=== PATIENT | female | born 1955 | race Caucasian/White ===

== ENCOUNTER 2016-07-03 17:45 | Emergency (ER) | payer MEDICARE, MEDICAID ==
[~2016-07-03] VITALS: Ht 170.2 cm; Wt 50.0 kg
[~2016-07-03 17:45] MED LIST: ALBU6.7H INH; APRI0.372 PO; CALALOT3 TOP; CARB LEFT EAR; CEFP200T PO; CREON24 PO; DUONI NEB; INSU100V2 SQ; LASI20TA PO; LEXA10TA PO; LORA-392 PO; MAXI5O EACH EYE; MELA3CAP2 PO; MONT10TA2 PO; MS C15TA7 PO; MS C60TA4 PO; MSIR15 PO; NITR0.4S SL; PERI8.6T PO; PRED20 PO; PROC1TAB8 PO; SIMV40 PO; Z.0.OXYGEN INH; [UNRECOGNIZED DRUG - CODE] TOP
[2016-07-03 18:27] VITALS: BP 147/73; PULSE 71; RESP 16; TEMP 98.1; O2SAT 99
--- NOTE | 2016-07-03 18:35 | PD ---
HPI Chief Complaint: fall Time Seen by Provider: 18:27 Travel History International Travel<30 days: No Contact w/Intl Traveler<30days: No Traveled to known affect area: No History of Present Illness HPI This is a 60-year-old female who reports a history of MS, COPD, on hospice care. She presents via EMS for evaluation after mechanical fall. She reports chronic hip pain which she has been told is secondary to osteoarthritis. Today she had a twinge of pain in her left hip, leaning against a chair and the chair fell causing her to hit the ground. She did lose consciousness. She awoke and her was standing over her. No reported seizure activity, no tongue biting or incontinence. She is complaining of headache, lower back pain and left hip pain. Left hip pain is chronic, worse since the fall. Pain is worse with movement. Denies any chest pain or shortness of breath, nausea or vomiting , abdominal pain, neck pain. She is requesting her nighttime pain medication. She has no other complaints at this time. PFSH Past Medical History Hx Anticoagulant Therapy: No Arthritis: Yes (RA) Asthma: Yes Anxiety: Yes Depression: Yes Cancer: Yes (OVARIAN) Cardiovascular Problems: Yes High Cholesterol: Yes Chemotherapy: Yes Congestive Heart Failure: Yes COPD: Yes Cerebrovascular Accident: No Diabetes: Yes Diminished Hearing: No Endocrine: Yes (STILL'S DISEASE) Gastrointestinal Disorders: Yes (PANCREATITIS) GERD: Yes Genitourinary: Yes (ADREANAL INSUFICIENCY) Hypertension: Yes Immune Disorder: No Musculoskeletal: Yes (FIBROMYALGIA AND ARTHRITIS AND MS) Neurologic: Yes (MULTIPLE SCLEROSIS) Psychiatric: Yes Reproductive: No Respiratory: Yes Pancreatitis: Yes Ulcer: Yes PNEUMOCCOCAL Vaccine (Year): 2007 Menopausal: Yes : 6 Para: 3 Miscarriage: 3 : 0 Past Surgical History Abdominal Surgery: Yes (PANCREATALG/JUNECTOMY (REMOVE STONE)) Body Medical Devices: MORPHINE PUMP Section: Yes Cholecystectomy: Yes Eye Surgery: Yes (RIGHT EYE CATARACT REMOVED LEFT EYE STILL HAS CATARACT) Genitourinary Surgery: Yes (A&P REPAIR BLADDER) Gynecologic Surgery: Yes (LUMPECTOMY BILATERAL) Hysterectomy: Yes Neurologic Surgery: Yes (Pain pump IMPLANT) Tonsillectomy: Yes Social History Alcohol Use: No Tobacco Use: Yes (1 PPD) Substance Use: No Allergies-Medications (Allergen,Severity, Reaction): Coded Allergies: Motrin (Verified Allergy, Severe, N/V/HIVES, 10/05/14) Percodan (Verified Allergy, Severe, N/V/HIVES OK WITH LORTAB, 10/05/14) Septra (Verified Allergy, Severe, N/V/HIVES, 10/05/14) Sulfa (Verified Allergy, Severe, N/V/HIVES, 10/05/14) SEPTRA DS Augmentin (Verified Adverse Reaction, Mild, NAUSEA/VOMITING, 10/05/14) Levaquin (Verified Adverse Reaction, Mild, DIARRHEA, 10/05/14) *MDRO Multi-Drug Resistant Organism (Unverified Adverse Reaction, Unknown , 10/11/14) MRSA sputum 2002. MRSA PCR Screen negative 10/09/14 and 10/11/14. Cleared per Infection Control. Reported Meds & Prescriptions Reported Meds & Active Scripts Active Reported Humulin R Inj (Insulin Human Regular) 1,000 Unit/10 Ml Vial Unknown Dose SQ ACHS Max dose at bedtime:( )units; sugars < 70 (0)units; sugars 150-199, (2)units; sugars 200-249,(4)units; sugars 250-299, (7)units; sugars 300-349,(10)units; sugars more than 349,(12)units. Nitrostat SL (Nitroglycerin) 0.4 Mg Subl 0.4 Mg SL DIRECTED PRN 1 tablet under the tongue as needed for chest pain. Repeat every 5 minutes for a total of 3 DOSES or call 911 if NO relief. Prochlorperazine Maleate 10 Mg Tab 10 Mg PO Q6H PRN Prednisone 20 Mg Tab 20 Mg PO DAILY Ms Contin (Morphine Sulfate) 15 Mg Tab 30 Mg PO Q8H [Morphine Ir] 30 Mg PO TID Lorazepam 0.5 Mg Tab 0.5 Mg PO Q6H PRN Creon (Pancrelipase) 36,000-114,000-180,000 Units Cap 1 Cap PO QIDPC Lexapro (Escitalopram Oxalate) 10 Mg Tab 10 Mg PO HS Duoneb (Ipratropium-Albuterol Neb) 0.5-2.5 Mg/3 Ml Neb 1 Nebule INH Q4HR NEB PRN Benadryl Extra Strength Topical (Diphenhydramine-Zinc Topical) 2-0.1% Cream 1 Applic TOPICAL DAILY PRN Proventil Hfa 6.7 GM Inh (Albuterol Sulfate) 90 Mcg/Act Aer 2 Puff INH Q6H PRN Apriso (Mesalamine) 0.375 Gm Caper 1.5 Gm PO DAILY Singulair (Montelukast Sodium) 10 Mg Tab 10 Mg PO HS Review of Systems Except as stated in HPI: all other systems reviewed are Neg Physical Exam Narrative GENERAL: Somewhat cachectic appearing female who is in no acute distress, answering questions appropriately. SKIN: Warm and dry. No obvious bruising or soft tissue swelling or abrasions noted. HEAD: Atraumatic. Normocephalic. EYES: Pupils equal and round reactive to light extraocular muscles are intact. No scleral icterus. No injection or drainage. ENT: No nasal bleeding or discharge. Mucous membranes pink and moist. NECK: Trachea midline. No JVD. CARDIOVASCULAR: Regular rate and rhythm. No murmur appreciated. RESPIRATORY: No accessory muscle use. Clear to auscultation. Breath sounds equal bilaterally. GASTROINTESTINAL: Abdomen soft, non-tender, nondistended. Hepatic and splenic margins not palpable. Morphine pump noted in the lower abdomen. MUSCULOSKELETAL: No obvious deformities. There is some tenderness to palpation to left lateral hip, left lumbar paravertebral musculature. There is no tenderness to palpation along the cervical thoracic or lumbar midline spine. The patient has pain with left hip flexion and extension actively. There is no obvious rotation or shortening. 2+ dorsalis pedis, posterior tibial pulses bilaterally. 5 out of 5 muscle strength in dorsi and plantar flexion bilaterally. NEUROLOGICAL: Awake and alert. No obvious cranial nerve deficits. Motor grossly within normal limits. Normal speech. Data Data Last Documented VS Vital Signs Date Time Temp Pulse Resp B/P Pulse Ox O2 Delivery O2 Flow Rate FiO2 07/03/16 21:09 59 18 126/68 98 Room Air 07/03/16 18:[address] Brain W/O Iv Contrast(Rout) (07/03/16 ) Spine, Lumbar - Ltd (Ap & Lat) (07/03/16 ) Hip, Uni(Ap&Lat) W Ap Pelvis (07/03/16 ) Morphine Inj (Morphine Inj) (07/03/16 18:45) Ct Lumb Spine W/O Contrast (07/03/16 ) MDM Medical Decision Making Medical Screen Exam Complete: Yes Emergency Medical Condition: Yes Medical Record Reviewed: Yes Differential Diagnosis Strain, contusion, fracture, spinal cord injury, intracranial hemorrhage, concussion Narrative Course 52-year-old female with chronic left hip pain presents after mechanical fall in which she hit her head, passed out after falling. She is complaining of some headache but primarily left hip pain, some left sided lower back pain. Plan is for x-ray imaging of the hip, pelvis, lower back, CT of the brain. X-ray and CT imaging of her feet. She has a mild potentially acute compression fracture of L1 and therefore CT of the lumbar spinous border. CT imaging of the brain, x-ray imaging the hip and pelvis revealed no acute abnormalities, osteoarthritis. CT of the lumbar spine confirms that this is a nonacute compression fracture. The patient is stable for discharge. Diagnosis Primary Impression: Low back strain Qualified Code: S39.012A - Low back strain, initial encounter Additional Impressions: Closed head injury Qualified Code: S09.90XA - Closed head injury, initial encounter Hip strain Qualified Code: S76.012A - Hip strain, left, initial encounter Additional Instructions: Follow-up with primary care physician next week. Return for any emergent medical conditions. Med/Other Pt SpecificInfo: No Change to Meds Disposition: 01 DISCHARGE HOME Condition: Stable Dave Baca July 03, 2016 18:35
[2016-07-03] MEDS ORDERED: MORPHINE SULFATE 4 MG/ML INJ IV PUSH ONE (18:45)
[2016-07-03] MEDS ORDERED: ALBU6.7H INH (19:06)
[2016-07-03] MEDS ORDERED: MONT10TA2 PO (19:06)
[2016-07-03] MEDS ORDERED: BENA2CRE2 TOPICAL (19:06)
[2016-07-03] MEDS ORDERED: APRI0.372 PO (19:06)
[2016-07-03] MEDS ORDERED: PANC3600 PO (19:17)
[2016-07-03] MEDS ORDERED: PROC10TA PO (19:17)
[2016-07-03] MEDS ORDERED: LEXA10TA PO (19:17)
[2016-07-03] MEDS ORDERED: PRED20 PO (19:17)
[2016-07-03] MEDS ORDERED: IPRASOL INH (19:17)
[2016-07-03] MEDS ORDERED: LORA-373 PO (19:17)
[2016-07-03] MEDS ORDERED: MS C15TA2 PO (19:17)
[2016-07-03] MEDS ORDERED: MORPHINE IR PO (19:17)
[2016-07-03] MEDS ORDERED: NITR0.4S SL (19:18)
[2016-07-03] MEDS ORDERED: INSU100V2 SQ (19:19)
--- NOTE | 2016-07-03 20:05 | RADRPT ---
EXAM DATE/TIME: 07/03/2016 19:33 [facility] COMPARISON: SPINE LUMBAR COMPLETE W/OBLIQ, May 19, 2011, 11:06. INDICATIONS : Back pain, fell MEDICAL HISTORY : Back pain SURGICAL HISTORY : Pain pump ENCOUNTER: Initial ACUITY: 1 day PAIN SCORE: 9/10 LOCATION: Lumbar spine FINDINGS: Bones appear osteopenic. There is a mild inferior endplate compression deformity of L1 which could be acute. It is no compared to 2011. No significant retropulsion is demonstrated. Other vertebral bodies have normal height. No subluxations are seen. CONCLUSION: Mild, potentially acute compression fracture of L1. Brad Zamudio MD on July 03, 2016 at 20:03 Board Certified Radiologist. This report was verified electronically.
--- NOTE | 2016-07-03 20:08 | RADRPT ---
EXAM DATE/TIME: 07/03/2016 19:34 [facility] COMPARISON: No previous studies available for comparison. INDICATIONS : Left hip pain, fell MEDICAL HISTORY : Back pain SURGICAL HISTORY : Pain pump ENCOUNTER: Initial ACUITY: 1 day PAIN SCORE: 9/10 LOCATION: Left Hip FINDINGS: There is a pain pump which partly obscures the right iliac wing. Visualized pelvis is intact. No subl uxation of either hip. Left hip is intact. There is moderate to severe osteoarthritis. CONCLUSION: No fracture. Moderate to severe left hip osteoarthritis. Brad Zamudio MD on July 03, 2016 at 20:06 Board Certified Radiologist. This report was verified electronically.
[2016-07-03 20:11] VITALS: BP 128/64; PULSE 60; RESP 18; O2SAT 99
--- NOTE | 2016-07-03 20:18 | RADRPT ---
EXAM DATE/TIME: 07/03/2016 19:52 [facility] COMPARISON: No previous studies available for comparison. INDICATIONS : Fall. Headache. RADIATION DOSE: 48.45 CTDIvol (mGy) MEDICAL HISTORY : Multple sclerosis. Hypertension. SURGICAL HISTORY : None. ENCOUNTER: Initial ACUITY: 1 day PAIN SCALE: 3/10 LOCATION: cranial TECHNIQUE: Multiple contiguous axial images were obtained of the head. Using automated exposure control and adj ustment of the mA and/or kV according to patient size, radiation dose was kept as low as reasonably a chievable to obtain optimal diagnostic quality images. FINDINGS: CEREBRUM: The ventricles are normal for age. No evidence of midline shift, mass lesion, hemorrhage or acute in farction. No extra-axial fluid collections are seen. Mild atrophy is noted. POSTERIOR FOSSA: The cerebellum and brainstem are intact. The 4th ventricle is midline. The cerebellopontine angle i s unremarkable. EXTRACRANIAL: The visualized portion of the orbits is intact. SKULL: The calvaria is intact. No evidence of skull fracture. CONCLUSION: No bleed or other acute intracranial abnormality. Mild atrophy noted. Brad Zamudio MD on July 03, 2016 at 20:16 Board Certified Radiologist. This report was verified electronically.
[2016-07-03 21:09] VITALS: BP 126/68; PULSE 59; RESP 18; O2SAT 98
--- NOTE | 2016-07-03 21:28 | RADRPT ---
EXAM DATE/TIME: 07/03/2016 20:45 [facility] COMPARISON: SPINE LUMBAR LTD (AP & LAT), July 03, 2016, 19:33. SPINE LUMBAR COMPLETE W/OBLIQ, May 19, 2011, 11: 06. INDICATIONS : Lower back pain. RADIATION DOSE: 35.83 CTDIvol (mGy) MEDICAL HISTORY : Multple sclerosis. Hypertension. SURGICAL HISTORY : Stimulator. ENCOUNTER: Initial ACUITY: 1 day PAIN SCALE: 5/10 LOCATION: Paraspinal TECHNIQUE: Volumetric scanning of the lumbar spine was performed. Multiplanar reconstructions in the sagittal, coronal and oblique axial planes were performed. Using automated exposure control and adjustment of the mA and/or kV according to patient size, radiation dose was kept as low as reasonably achievable t o obtain optimal diagnostic quality images. FINDINGS: There is mild loss of height anteriorly of the L1 vertebral body, new since [address] shows brenda t this is nonacute. I don't see an acute cortical break or trabecular disruption of the lumbar spine. Other vertebral bodies have normal height. There is a mild levoconvex curvature. A few millimeters of degenerative anterolisthesis seen at L5/S1 and there is severe bilateral facet osteoarthritis and left greater than right foraminal stenosis at this level. No acute malalignment demonstrated. Juxtavertebral soft tissues are within normal limits. CONCLUSION: 1. Mild L1 compression fracture is nonacute. I don't see an acute fracture. 2. Grade 1 degenerative anterolisthesis at L5/S1 with left greater than right foraminal stenosis. No acute malalignment demonstrated. Brad Zamudio MD on July 03, 2016 at 21:24 Board Certified Radiologist. This report was verified electronically.
[2016-07-03 21:59] VITALS: BP 124/66
== END 2016-07-03 22:05 | disposition home or self-care (01) ==
LOC: NEPC 17:45
DX: S39.012A Strain of muscle, fascia and tendon of lower back, initial encounter (principal); S09.90XA Unspecified injury of head, initial encounter; M25.552 Pain in left hip; R51 Headache; J45.909 Unspecified asthma, uncomplicated; E11.9 Type 2 diabetes mellitus without complications; I10 Essential (primary) hypertension; F17.210 Nicotine dependence, cigarettes, uncomplicated; G35 Multiple sclerosis; J44.9 Chronic obstructive pulmonary disease, unspecified; W01.0XXA Fall on same level from slipping, tripping and stumbling without subsequent striking against object, initial encounter; Y92.009 Unspecified place in unspecified non-institutional (private) residence as the place of occurrence of the external cause
CPT/HCPCS: 70450; 72100; 72131; 73502; 96374; 99285; J2270

== ENCOUNTER 2016-11-28 05:02 | Emergency (ER) | payer MEDICARE, MEDICAID ==
[~2016-11-28] VITALS: Ht 170.2 cm; Wt 47.7 kg
[~2016-11-28 05:02] MED LIST changes: +BENA2CRE2 TOPICAL; -CALALOT3 TOP; -CARB LEFT EAR; -CEFP200T PO; -CREON24 PO; -DUONI NEB; +IPRASOL INH; -LASI20TA PO; +LORA-373 PO; -LORA-392 PO; -MAXI5O EACH EYE; -MELA3CAP2 PO; +MORPHINE IR PO; +MS C15TA2 PO; -MS C15TA7 PO; -MS C60TA4 PO; -MSIR15 PO; +PANC3600 PO; -PERI8.6T PO; +PROC10TA PO; -PROC1TAB8 PO; -SIMV40 PO; -Z.0.OXYGEN INH; -[UNRECOGNIZED DRUG - CODE] TOP
[2016-11-28 05:06] VITALS: BP 158/86; PULSE 97; RESP 16; TEMP 98; O2SAT 96
[2016-11-28] MEDS ORDERED: LEXA20TA PO (05:23)
--- NOTE | 2016-11-28 05:37 | PD ---
HPI Chief Complaint: Skin Problem Time Seen by Provider: 05:17 Travel History International Travel<30 days: No Contact w/Intl Traveler<30days: No Traveled to known affect area: No History of Present Illness HPI Patient is a 60-year-old female with a history of COPD on chronic steroids presents emergency department for evaluation of left arm abscess. Patient states his been present for the past 3-4 days and gradually worsening. Denies any fever denies any IV drug use. Patient also has a abrasion on her left iglesias she states was from a dog bite several days ago. She just finished a course of doxycycline. Location is left antecubital fossa, context as above, duration as above, gradually worsening. PFSH Past Medical History Hx Anticoagulant Therapy: No Arthritis: Yes (RA) Asthma: Yes Anxiety: Yes Depression: Yes Cancer: Yes (OVARIAN) Cardiovascular Problems: Yes High Cholesterol: Yes Chemotherapy: Yes Congestive Heart Failure: Yes COPD: Yes Cerebrovascular Accident: No Diabetes: Yes Patient Takes Glucophage: No Diminished Hearing: No Endocrine: Yes (STILL'S DISEASE) Gastrointestinal Disorders: Yes (PANCREATITIS) GERD: Yes Genitourinary: Yes (ADREANAL INSUFICIENCY) Hypertension: Yes Immune Disorder: No Implanted Vascular Access Dvce: Yes Musculoskeletal: Yes (FIBROMYALGIA AND ARTHRITIS AND MS) Neurologic: Yes (MULTIPLE SCLEROSIS) Psychiatric: Yes Reproductive: No Respiratory: Yes Pancreatitis: Yes Ulcer: Yes PNEUMOCCOCAL Vaccine (Year): 2007 ?: Not Menopausal: Yes : 6 Para: 3 Miscarriage: 3 : 0 Past Surgical History Abdominal Surgery: Yes (PANCREATALG/JUNECTOMY (REMOVE STONE)) Body Medical Devices: MORPHINE PUMP Section: Yes Cholecystectomy: Yes Eye Surgery: Yes (RIGHT EYE CATARACT REMOVED LEFT EYE STILL HAS CATARACT) Genitourinary Surgery: Yes (A&P REPAIR BLADDER) Gynecologic Surgery: Yes (LUMPECTOMY BILATERAL) Hysterectomy: Yes Neurologic Surgery: Yes (Pain pump IMPLANT) Tonsillectomy: Yes Social History Alcohol Use: No Tobacco Use: Yes (1PPD) Substance Use: No Allergies-Medications (Allergen,Severity, Reaction): Coded Allergies: Sulfa (Sulfonamide Antibiotics) (Unverified Allergy, Severe, N/V/HIVES, ) SEPTRA DS aspirin (Unverified Allergy, Severe, N/V/HIVES OK WITH LORTAB, 11/28/16) fentanyl (Verified Allergy, Severe, Anaphylaxis, 11/28/16) ibuprofen (Unverified Allergy, Severe, N/V/HIVES, 11/28/16) oxycodone (Unverified Allergy, Severe, N/V/HIVES OK WITH LORTAB, 11/28/16) sulfamethoxazole (Unverified Allergy, Severe, N/V/HIVES, 11/28/16) trimethoprim (Unverified Allergy, Severe, N/V/HIVES, 11/28/16) amoxicillin (Unverified Adverse Reaction, Mild, NAUSEA/VOMITING, 11/28/16) clavulanic acid (Unverified Adverse Reaction, Mild, NAUSEA/VOMITING, 11/28) levofloxacin (Unverified Adverse Reaction, Mild, DIARRHEA, 11/28/16) *MDRO Multi-Drug Resistant Organism (Unverified Adverse Reaction, Unknown , 11/28/16) MRSA sputum 2002. MRSA PCR Screen negative 10/09/14 and 10/11/14. Cleared per Infection Control. Reported Meds & Prescriptions Reported Meds & Active Scripts Active Clindamycin (Clindamycin HCl) 300 Mg Cap 300 Mg PO Q6H 10 Days Reported Lexapro (Escitalopram Oxalate) 20 Mg Tab 20 Mg PO DAILY Humulin R Inj (Insulin Human Regular) 1,000 Unit/10 Ml Vial Unknown Dose SQ ACHS Max dose at bedtime:( )units; sugars < 70 (0)units; sugars 150-199, (2)units; sugars 200-249,(4)units; sugars 250-299, (7)units; sugars 300-349,(10)units; sugars more than 349,(12)units. Nitrostat SL (Nitroglycerin) 0.4 Mg Subl 0.4 Mg SL DIRECTED PRN 1 tablet under the tongue as needed for chest pain. Repeat every 5 minutes for a total of 3 DOSES or call 911 if NO relief. Prochlorperazine Maleate 10 Mg Tab 10 Mg PO Q6H PRN Prednisone 20 Mg Tab 20 Mg PO DAILY Ms Contin (Morphine Sulfate) 15 Mg Tab 30 Mg PO Q8H [Morphine Ir] 30 Mg PO TID Lorazepam 0.5 Mg Tab 0.5 Mg PO Q6H PRN Creon (Pancrelipase) 36,000-114,000-180,000 Units Cap 1 Cap PO QIDPC Duoneb (Ipratropium-Albuterol Neb) 0.5-2.5 Mg/3 Ml Neb 1 Nebule INH Q4HR NEB PRN Benadryl Extra Strength Topical (Diphenhydramine-Zinc Topical) 2-0.1% Cream 1 Applic TOPICAL DAILY PRN Proventil Hfa 6.7 GM Inh (Albuterol Sulfate) 90 Mcg/Act Aer 2 Puff INH Q6H PRN Apriso (Mesalamine) 0.375 Gm Caper 1.5 Gm PO DAILY Singulair (Montelukast Sodium) 10 Mg Tab 10 Mg PO HS Review of Systems Except as stated in HPI: all other systems reviewed are Neg Physical Exam Narrative GENERAL: Well-developed, thin patient in no obvious distress. SKIN: Small area of fluctuance with surrounding erythema over the left before meals fossa, approximately grape-sized fluctuant area surrounded by silver dollar size area of cellulitis. Range of motion normal. HEAD: Atraumatic. Normocephalic. EYES: Pupils equal and round. No scleral icterus. No injection or drainage. ENT: No nasal bleeding or discharge. Mucous membranes pink and moist. NECK: Trachea midline. No JVD. CARDIOVASCULAR: Regular rate and rhythm. No murmur appreciated. RESPIRATORY: No accessory muscle use. Clear to auscultation. Breath sounds equal bilaterally. GASTROINTESTINAL: Abdomen soft, non-tender, nondistended. Hepatic and splenic margins not palpable. MUSCULOSKELETAL: No obvious deformities. No clubbing. No cyanosis. No edema. NEUROLOGICAL: Awake and alert. No obvious cranial nerve deficits. Motor grossly within normal limits. Normal speech. PSYCHIATRIC: Appropriate mood and affect; insight and judgment normal. Data Data Last Documented VS Vital Signs Date Time Temp Pulse Resp B/P (MAP) Pulse Ox O2 Delivery O2 Flow Rate FiO2 11/28/16 06:55 11/28/16 05:06 98.0 97 16 96 Room Air Orders Orders Basic Metabolic Panel (Bmp) (11/28/16 05:35) Complete Blood Count With Diff (11/28/16 05:35) Iv Access Insert/Monitor (11/28/16 05:35) Ecg Monitoring (11/28/16 05:35) Oximetry (11/28/16 05:35) Sodium Chloride 0.9% Flush (Ns Flush) (11/28/16 05:45) Lidocai-Epi 1%-1:100,000 Inj (Xylocaine- (11/28/16 05:45) Wound Culture And Gram Stain (11/28/16 06:41) Acetaminophen (Tylenol) (11/28/16 06:45) Ed Discharge Order (11/28/16 06:46) Labs Laboratory Tests Test 11/28/16 05:38 White Blood Count 7.9 TH/MM3 Red Blood Count 4.85 MIL/MM3 Hemoglobin 14.2 GM/DL Hematocrit 41.4 % Mean Corpuscular Volume 85.4 FL Mean Corpuscular Hemoglobin 29.3 PG Mean Corpuscular Hemoglobin Concent 34.3 % Red Cell Distribution Width 15.5 % Platelet Count 353 TH/MM3 Mean Platelet Volume 7.6 FL Neutrophils (%) (Auto) 53.4 % Lymphocytes (%) (Auto) 34.7 % Monocytes (%) (Auto) 7.2 % Eosinophils (%) (Auto) 2.9 % Basophils (%) (Auto) 1.8 % Neutrophils # (Auto) 4.2 TH/MM3 Lymphocytes # (Auto) 2.8 TH/MM3 Monocytes # (Auto) 0.6 TH/MM3 Eosinophils # (Auto) 0.2 TH/MM3 Basophils # (Auto) 0.1 TH/MM3 CBC Comment DIFF FINAL Differential Comment Blood Urea Nitrogen 17 MG/DL Creatinine 0.73 MG/DL Random Glucose 192 MG/DL Calcium Level 10.4 MG/DL Sodium Level 137 MEQ/L Potassium Level 4.4 MEQ/L Chloride Level 105 MEQ/L Carbon Dioxide Level 26.0 MEQ/L Anion Gap 6 MEQ/L Estimat Glomerular Filtration Rate 82 ML/MIN [facility] Medical Decision Making Medical Screen Exam Complete: Yes Emergency Medical Condition: Yes Differential Diagnosis Abscess, cellulitis, sepsis unlikely. Narrative Course Patient roomed in emergency department, labs are reassuring, I&D performed by me revealing minimal serosanguineous and trace purulent fluid. Discussed symptomatic management home returned ED criteria. Wound was not packed discussed left open to drain. She stable for discharge. Procedures Procedure Narrative INCISION AND DRAINAGE: After risks benefits, patient ultimately discussed, patient was anesthetized with 1% lidocaine with epinephrine to a total of 2 cc. Single incision was made with a 11 blade, some serosanguineous fluid was expressed as well as some minimal purulent fluid, wound culture was obtained. Hemostasis achieved the patient had no packing placed with left open to air for drainage. Covered with sterile bandage. Diagnosis Primary Impression: Abscess Med/Other Pt SpecificInfo: Prescription(s) given Scripts Clindamycin (Clindamycin) 300 Mg Cap 300 MG PO Q6H for Infection for 10 Days, #40 CAP 0 Refills Prov: Lance Baker MD 11/28/16 Disposition: 01 DISCHARGE HOME Condition: Stable Lance Baker MD Nov 28, 2016 05:37
[2016-11-28] MEDS ORDERED: SODIUM CHLORIDE 0.9% FLUSH 10 ML FLUSH IV FLUSH PRN (05:45)
[2016-11-28] MEDS ORDERED: LIDOCAINE 1%/EPINEPHrine 1:100,000 SOLN 20 ML VIAL INFIL ONE (05:45)
[2016-11-28 05:48] LABS: AUTOMATED NEUTROPHIL # 4.2 TH/MM3 (1.8-7.7); BASOPHIL # 0.1 TH/MM3 (0-0.2); BASOPHIL % 1.8 % (0.0-2.0); EOSINOPHIL # 0.2 TH/MM3 (0-0.4); EOSINOPHIL % 2.9 % (0.0-4.0); HEMATOCRIT 41.4 % (35.0-46.0); HEMO FLAGS DIFF FINAL; LYMPH % 34.7 % (9.0-44.0); LYMPHOCYTE # 2.8 TH/MM3 (1.0-4.8); MEAN CELL VOLUME 85.4 FL (80.0-100.0); MEAN CORPUSCULAR HEMOGLOBIN 29.3 PG (27.0-34.0); MEAN CORPUSCULAR HGB CONC 34.3 % (32.0-36.0); MONO % 7.2 % (0.0-8.0); NEUT % 53.4 % (16.0-70.0); PLATELET COUNT 353 TH/MM3 (150-450); RED BLOOD COUNT 4.85 MIL/MM3 (4.00-5.30); RED CELL DISTRIBUTION WIDTH 15.5 % (11.6-17.2); WHITE BLOOD COUNT 7.9 TH/MM3 (4.0-11.0)
[2016-11-28 06:16] LABS: POTASSIUM 4.4 MEQ/L (3.5-5.1)
[2016-11-28] MEDS ORDERED: CLIN1CAP6 PO (06:44)
[2016-11-28] MEDS ORDERED: ACETAMINOPHEN 325 MG TAB PO ONE (06:45)
== END 2016-11-28 06:56 | disposition home or self-care (01) ==
LOC: NEPE 05:02
DX: L02.414 Cutaneous abscess of left upper limb (principal); B95.61 Methicillin susceptible Staphylococcus aureus infection as the cause of diseases classified elsewhere
CPT/HCPCS: 10060; 80048; 85025; 86403; 87070; 87186

== ENCOUNTER 2017-03-03 10:39 | Emergency (ER) | payer MEDICAID, MEDICARE ==
[~2017-03-03] VITALS: Ht 170.2 cm; Wt 47.0 kg
[~2017-03-03 10:39] MED LIST changes: +CLIN300C5 PO; -LEXA10TA PO; +LEXA20TA PO; -LORA-373 PO; +LORA0.5T PO; -MS C15TA2 PO; +MS C15TA7 PO
[2017-03-03 10:41] VITALS: BP 128/75; PULSE 76; RESP 13; TEMP 98.8; O2SAT 96
[2017-03-03] MEDS ORDERED: SUBO8MIS SL (10:50)
--- NOTE | 2017-03-03 11:07 | PD ---
HPI Chief Complaint: Pain: Acute or Chronic Time Seen by Provider: 10:52 Travel History International Travel<30 days: No Contact w/Intl Traveler<30days: No Traveled to known affect area: No History of Present Illness HPI Patient comes to the emergency department complaining of right wrist pain that began 2 days ago. Patient denies any known trauma but states she was moving stuff around that she may have bumped it. Small area of redness noted on the lateral dorsal aspect patient states from where she lets her baby kitten bite on her. Reports cats vaccinations are all up-to-date. Patient reports her tetanus shot is less than 5 years ago. Patient describes a burning sensation in her right wrist that radiates proximally or distally. Patient reports she has been taking ibuprofen and using ice for symptomatic relief. Pains worse with palpation and certain movement. Patient has [id number]. PFSH Past Medical History Hx Anticoagulant Therapy: No Arthritis: Yes (RA) Asthma: Yes Anxiety: Yes Depression: Yes Cancer: Yes (OVARIAN) Cardiovascular Problems: Yes High Cholesterol: Yes Chemotherapy: Yes Congestive Heart Failure: Yes COPD: Yes Cerebrovascular Accident: No Diabetes: Yes Patient Takes Glucophage: No Diminished Hearing: No Endocrine: Yes (STILL'S DISEASE) Gastrointestinal Disorders: Yes (PANCREATITIS) GERD: Yes Genitourinary: Yes (ADREANAL INSUFICIENCY) Hypertension: Yes Immune Disorder: No Implanted Vascular Access Dvce: Yes Musculoskeletal: Yes (FIBROMYALGIA AND ARTHRITIS AND MS) Neurologic: Yes (MULTIPLE SCLEROSIS) Psychiatric: Yes Reproductive: No Respiratory: Yes Pancreatitis: Yes Ulcer: Yes PNEUMOCCOCAL Vaccine (Year): 2007 ?: Not Menopausal: Yes : 6 Para: 3 Miscarriage: 3 : 0 Past Surgical History Abdominal Surgery: Yes (PANCREATALG/JUNECTOMY (REMOVE STONE)) Body Medical Devices: MORPHINE PUMP Section: Yes Cholecystectomy: Yes Eye Surgery: Yes (RIGHT EYE CATARACT REMOVED LEFT EYE STILL HAS CATARACT) Genitourinary Surgery: Yes (A&P REPAIR BLADDER) Gynecologic Surgery: Yes (LUMPECTOMY BILATERAL) Hysterectomy: Yes Neurologic Surgery: Yes (Pain pump IMPLANT) Tonsillectomy: Yes Social History Alcohol Use: No Tobacco Use: Yes (1PPD) Substance Use: No Allergies-Medications (Allergen,Severity, Reaction): Coded Allergies: Sulfa (Sulfonamide Antibiotics) (Unverified Allergy, Severe, N/V/HIVES, ) SEPTRA DS aspirin (Unverified Allergy, Severe, N/V/HIVES OK WITH LORTAB, 03/03/17) fentanyl (Verified Allergy, Severe, Anaphylaxis, 03/03/17) ibuprofen (Unverified Allergy, Severe, N/V/HIVES, 03/03/17) oxycodone (Unverified Allergy, Severe, N/V/HIVES OK WITH LORTAB, 03/03/17) sulfamethoxazole (Unverified Allergy, Severe, N/V/HIVES, 03/03/17) trimethoprim (Unverified Allergy, Severe, N/V/HIVES, 03/03/17) amoxicillin (Unverified Adverse Reaction, Mild, NAUSEA/VOMITING, 03/03/17) clavulanic acid (Unverified Adverse Reaction, Mild, NAUSEA/VOMITING, ) levofloxacin (Unverified Adverse Reaction, Mild, DIARRHEA, 03/03/17) *MDRO Multi-Drug Resistant Organism (Unverified Adverse Reaction, Unknown , 11/28/16) MRSA sputum 2002. MRSA PCR Screen negative 10/09/14 and 10/11/14. Cleared per Infection Control. Reported Meds & Prescriptions Reported Meds & Active Scripts Active Naprosyn (Naproxen) 500 Mg Tab 500 Mg PO Q12HR PRN Flagyl (Metronidazole) 500 Mg Tab 500 Mg PO TID 10 Days Doxycycline Hyclate 100 Mg Cap 100 Mg PO BID Reported Suboxone Sublingual Film (Buprenorphine-Naloxone Sublingual Film) 8-2 Mg Film 1 Film SL BID Unique ID number required: Lexapro (Escitalopram Oxalate) 20 Mg Tab 20 Mg PO DAILY Humulin R Inj (Insulin Human Regular) 1,000 Unit/10 Ml Vial Unknown Dose SQ ACHS Max dose at bedtime:( )units; sugars < 70 (0)units; sugars 150-199, (2)units; sugars 200-249,(4)units; sugars 250-299, (7)units; sugars 300-349,(10)units; sugars more than 349,(12)units. Nitrostat SL (Nitroglycerin) 0.4 Mg Subl 0.4 Mg SL DIRECTED PRN 1 tablet under the tongue as needed for chest pain. Repeat every 5 minutes for a total of 3 DOSES or call 911 if NO relief. Prochlorperazine Maleate 10 Mg Tab 10 Mg PO Q6H PRN Prednisone 20 Mg Tab 20 Mg PO DAILY Creon (Pancrelipase) 36,000-114,000-180,000 Units Cap 1 Cap PO QIDPC Duoneb (Ipratropium-Albuterol Neb) 0.5-2.5 Mg/3 Ml Neb 1 Nebule INH Q4HR NEB PRN Benadryl Extra Strength Topical (Diphenhydramine-Zinc Topical) 2-0.1% Cream 1 Applic TOPICAL DAILY PRN Proventil Hfa 6.7 GM Inh (Albuterol Sulfate) 90 Mcg/Act Aer 2 Puff INH Q6H PRN Apriso (Mesalamine) 0.375 Gm Caper 1.5 Gm PO DAILY Singulair (Montelukast Sodium) 10 Mg Tab 10 Mg PO HS Review of Systems Except as stated in HPI: all other systems reviewed are Neg Physical Exam Narrative GENERAL: Well-developed, well nourished, in no acute distress, and non-ill appearing. SKIN: Small area of erythematous noted over the dorsal aspect of the right first metacarpal. Tender to palpation. There is no crepitus, induration, or fluctuation. Soft tissue swelling noted. No tenderness over anatomical snuffbox. Neurovascularly intact distally. No streaking. HEAD: Atraumatic. Normocephalic. EYES: Pupils equal and round. EOMI. No scleral icterus. No injection or drainage. ENT: No nasal bleeding or discharge. Mucous membranes pink and moist. NECK: Trachea midline. Supple. No nuclear rigidity. CARDIOVASCULAR: Radial pulses 2+, intact, and equal bilaterally. Capillary refill less than 2 seconds. RESPIRATORY: No accessory muscle use. No respiratory distress. MUSCULOSKELETAL: No obvious deformities. No clubbing. No cyanosis. No edema. Decreased range of motion right wrist secondary to pain. NEUROLOGICAL: Awake and alert. No obvious cranial nerve deficits. Motor grossly within normal limits. Normal speech. PSYCHIATRIC: Appropriate mood and affect; insight and judgment normal. Data Data Last Documented VS Vital Signs Date Time Temp Pulse Resp B/P (MAP) Pulse Ox O2 Delivery O2 Flow Rate FiO2 03/03/17 10:41 98.8 76 13 128/75 (92) 96 Orders Orders Wrist, Complete ([id number]) (03/03/17 ) Doxycycline (Vibramycin) (03/03/17 11:15) Metronidazole (Flagyl) (03/03/17 11:15) Ibuprofen (Motrin) (03/03/17 11:15) Ed Discharge Order (03/03/17 12:21) Splint Or Brace Apply/Monitor (03/03/17 12:21) MDM Medical Decision Making Medical Screen Exam Complete: Yes Emergency Medical Condition: Yes Interpretation(s) Last Impressions Wrist X-Ray 03/03/17 0000 Signed Impressions: Service Date/Time: Friday, March 03, 2017 11:26 - CONCLUSION: 1. No acute bony abnormality. There is mild to moderate osteoarthritis. Benigno Wang MD Differential Diagnosis Fracture, strain, contusion, Bite, abscess, cellulitis, septic joint Narrative Course The patient suffered animal bite wound. The animal is domesticated, vaccinations are reported to be UTD and the animal can be watched. There is no evidence of deep tissue involvement and/or local tendon involvement. There was no evidence to suggest foreign bodies. Visual and tactile exams were unremarkable. There was no evidence of neurovascular injury as well. Rabies prophylaxis was discussed with the patient and exposure appears low risk and not indicated. The patient was given signs and symptom warnings for infection, such as increasing pain, redness, swelling, associated heat, pus or fever. The patient was given antibiotics to cover mouth sonal and instructions for timely follow up for wound recheck. The patient agreed with plan of care. Animal control was contacted per hospital protocol. X-ray was performed and there was no foreign body or tooth/tooth fragment. Patient in no obvious distress upon re-evaluation. All pertinent Radiology result(s) discussed with patient. Discussed patient with Dr. Liu prior to discharge, who is in agreement with plan of care and disposition. Patient was asked if they wanted to speak to my attending, which the patient did not wish to do at this time. Any questions/concerns in reference to patient diagnosis/condition discussed and clarified prior to patient's discharge. Reinforced sheer importance of close follow up here in 24 hours for reevaluation. Instructed patient to return to ED immediately, if symptoms return /worsen. Patient showed understanding of above instructions. Further instructions and recommendations were detailed in discharge paperwork. Patient ambulated without difficulty out of ED at discharge. Diagnosis Primary Impression: Cat bite of right wrist with infection Qualified Codes: S61.551A - Open bite of right wrist, initial encounter; L08.9 - Local infection of the skin and subcutaneous tissue, unspecified; W55.01XA - Bitten by cat, initial encounter Patient Instructions: Animal Bite (ED), General Instructions Additional Instructions: Follow-up here in 24 hours for recheck. Take all medication as prescribed. Wear wrist splint as needed for comfort. Return to the emergency department if symptoms get worse. Med/Other Pt SpecificInfo: Prescription(s) given Scripts Naproxen (Naprosyn) 500 Mg Tab 500 MG PO Q12HR Y for PAIN SCALE 1 TO 10, #14 TAB 0 Refills Prov: Tori Liu MD 03/03/17 Metronidazole (Flagyl) 500 Mg Tab 500 MG PO TID for Infection for 10 Days, TAB 0 Refills Prov: Tori Liu MD 03/03/17 Doxycycline Hyclate (Doxycycline Hyclate) 100 Mg Cap 100 MG PO BID for Infection, #20 CAP 0 Refills Prov: Tori Liu MD 03/03/17 Disposition: 01 DISCHARGE HOME Condition: Stable Sukhdev Castañeda Mar 03, 2017 11:07
[2017-03-03] MEDS ORDERED: DOXYCYCLINE HYCLATE 100 MG CAP PO ONE (11:15)
[2017-03-03] MEDS ORDERED: IBUPROFEN 800 MG TAB PO ONE (11:15)
[2017-03-03] MEDS ORDERED: metroNIDAZOLE 500 MG TAB PO ONE (11:15)
[2017-03-03] MEDS ORDERED: METR-1 PO (11:40)
[2017-03-03] MEDS ORDERED: DOXY100C PO (11:40)
--- NOTE | 2017-03-03 11:58 | RADRPT ---
EXAM DATE/TIME: 03/03/2017 11:26 [facility] COMPARISON: No previous studies available for comparison. INDICATIONS : Right wrist swelling and pain after lifting drawers. No known injury. Cat scratch on affected area. MEDICAL HISTORY : Multiple sclerosis. Hypertension SURGICAL HISTORY : None. ENCOUNTER: Initial ACUITY: 2 days PAIN SCORE: 6/10 LOCATION: Right wrist FINDINGS: No acute fracture. Mild to moderate osteoarthritis. No dislocation. Mild osteopenia. CONCLUSION: 1. No acute bony abnormality. There is mild to moderate osteoarthritis. Benigno Wang MD on March 03, 2017 at 11:54 Board Certified Radiologist. This report was verified electronically.
[2017-03-03] MEDS ORDERED: NAPR500 PO (12:22)
== END 2017-03-03 12:43 | disposition home or self-care (01) ==
LOC: NEPK 10:39
DX: S61.551A Open bite of right wrist, initial encounter (principal); L08.9 Local infection of the skin and subcutaneous tissue, unspecified; W55.01XA Bitten by cat, initial encounter; E11.9 Type 2 diabetes mellitus without complications; E78.00 Pure hypercholesterolemia, unspecified; G35 Multiple sclerosis; I11.0 Hypertensive heart disease with heart failure; I50.9 Heart failure, unspecified; F17.200 Nicotine dependence, unspecified, uncomplicated
CPT/HCPCS: 73110; 99284; L3908

== ENCOUNTER 2017-05-11 21:06 | Emergency (ER) | payer MEDICARE ==
[~2017-05-11] VITALS: Ht 170.2 cm; Wt 48.6 kg
[~2017-05-11 21:06] MED LIST changes: -CLIN300C5 PO; +DOXY100C PO; -LORA0.5T PO; +METR-1 PO; -MORPHINE IR PO; -MS C15TA7 PO; +NAPR500 PO; +SUBO8MIS SL
[2017-05-11 21:12] VITALS: BP 119/78; PULSE 89; RESP 18; TEMP 98.7; O2SAT 97
--- NOTE | 2017-05-12 13:39 | PD ---
Physical Exam Date Seen by Provider: May 11, 2017 Time Seen by Provider: 21:12 Narrative 61 year old female presents to the emergency department for evaluation of a dog bite to her left calf that occurred today around 5pm. Current pain is 8/10. Moderate severity. Data Data Last Documented VS Vital Signs Date Time Temp Pulse Resp B/P (MAP) Pulse Ox O2 Delivery O2 Flow Rate FiO2 05/11/17 21:12 98.7 89 18 119/78 (92) 97 MDM Supervised Visit with SILVERIO: No Narrative Course 61 year old female presents to the emergency department for evaluation of a dog bite. Patient was initially seen in triage. She left AMA before she could be moved to a medical bed. Diagnosis Primary Impression: Left against medical advice Patient Instructions: General Instructions Departure Forms: Tests/Procedures Disposition: 07 AGAINST MEDICAL ADVICE Vero Boogie May 12, 2017 13:39
== END 2017-05-11 23:29 | disposition left against medical advice (07) ==
LOC: NED 21:06
DX: S81.852A Open bite, left lower leg, initial encounter (principal); W54.0XXA Bitten by dog, initial encounter
CPT/HCPCS: 99281